=== PATIENT | female | born 1955 | race Caucasian/White ===

== ENCOUNTER → 2022-02-04 15:21 | Outpatient (CLI) | payer BC, SELFPAY ==
[2022-02-04 17:27] LABS: Influenza A - CEPHEID Flu A NEGATIVE (NEGATIVE); Influenza B - CEPHEID Flu B NEGATIVE (NEGATIVE)
[2022-02-04 17:29] LABS: COVID-19 CEPHEID PCR (VTM/NP) Negative (Negative)
== END ==
PROVIDERS: Visit Provider Physician Assistant
DX: Z20.822 Contact with and (suspected) exposure to COVID-19 (principal); R05.9 Cough, unspecified
CPT/HCPCS: 0240U

== ENCOUNTER 2023-05-19 13:54 | Emergency (ER) | payer BC, SELFPAY ==
[2023-05-19 13:58] VITALS: BP 176/89; PULSE 77; RESP 16; TEMP 36.8; O2SAT 99; BMI 29.8
--- NOTE | 2023-05-19 14:32 | DI.CT.S_ITS ---
PROCEDURE: CT HEAD/BRAIN WO CON INDICATIONS: Right eye visual disturbance TECHNIQUE: Noncontrast 4.5 mm thick angled axial sections acquired from the foramen magnum to the vertex, with coronal and sagittal reformats. For radiation dose reduction, the following was used: automated exposure control, adjustment of mA and/or kV according to patient size. COMPARISON: None. FINDINGS: Image quality: Excellent. CSF spaces: Basal cisterns are patent. No extra-axial fluid collections. The ventricles are symmetric in size and shape. Brain: No intracranial bleeds or masses. There is cerebral volume loss for age, with resultant ventricular and sulcal prominence. There is intracranial internal carotid artery atherosclerosis. Skull and face: Calvarium and visualized facial bones appear intact, without suspicious lesions. Sinuses: Visualized sinuses and mastoids are clear. IMPRESSION: No acute intracranial abnormalities. Dictated by: Angel Jordan M.D. on 05/19/2023 at 14:56 Approved by: Angel Jordan M.D. on 05/19/2023 at 14:57
--- NOTE | 2023-05-19 14:33 | ED.NEUROSD ---
HPI - Neuro Symptoms/Deficit General Chief Complaint: Neuro Symptoms/Deficit Stated Complaint: dr ref/visual disturbance Time Seen by Provider: 05/19/23 14:13 Source: patient Mode of arrival: Ambulatory History of Present Illness HPI Narrative: Patient is a 67-year-old female who is here for evaluation of an episode that occurred earlier today. She states that she was sitting at her computer when she noticed a visual disturbance in her right lower visual francois. She stated that this was a well-defined visual disturbance. She stated that she left the computer went into the other room and turned on the TV and noticed that it was still there. She closed her eyes and noticed it was still there. Lasted approximately 15-20 minutes. She stated that it then transient her visual field from left to right and now does not have any symptoms. She does have history of migraines. She states that this is not what her normal auras are for migraines. She did have a headache this morning but it was her normal headache. She currently is asymptomatic. On Anticoagulants: No Related Data Home Medications Medication Instructions Recorded Confirmed aspirin 325 mg tablet,delayed 325 mg PO QDAY ##0 11/28/16 release zbwgalr-soavxmhrdhcpq-tzhqrvov 250 1 tab PO PRN PRN ##0 11/28/16 mg-250 mg-65 mg tablet (Excedrin Extra Strength) ibuprofen 400 mg tablet 400 mg PO PRN PRN ##0 11/28/16 sumatriptan succinate 50 mg tablet ##0 11/28/16 (Imitrex) Previous Rx's Medication Instructions Recorded albuterol sulfate 90 mcg/actuation 2 puff inhalation Q4-6H PRN 02/04/22 aerosol inhaler bronchospasm #8.5 grams azithromycin 250 mg tablet See Rx Instructions PO .COMPLEX #6 02/04/22 tabs Allergies Allergy/AdvReac Type Severity Reaction Status Date / Time No Known Drug Allergies Allergy Verified 05/19/23 14:07 Review of Systems Constitutional Constitutional: Reports system reviewed and no additional complaints, except as documented Eyes Eyes: Reports system reviewed and no additional complaints, except as documented ENT Ears, Nose, Mouth, and Throat: Reports system reviewed and no additional complaints, except as documented Cardiovascular Cardiovascular: Reports system reviewed and no additional complaints, except as documented Neurologic Neurologic: Reports system reviewed and no additional complaints, except as documented Hematologic/Lymphatic On Anticoagulants: No Patient History Surgical History (Updated 01/18/18 @ 06:12 by Conversion Provider) Status post hernia repair Status post hysterectomy Social History Smoking Status: Never smoker Smoking Status: Never smoker Substance Use Type: does not use Exam Initial Vital Signs Initial Vital Signs: Vital Signs Temperature 98.3 F 05/19/23 13:58 Pulse Rate 77 05/19/23 13:58 Respiratory Rate 16 05/19/23 13:58 Blood Pressure 176/89 H 05/19/23 13:58 Pulse Oximetry 99 05/19/23 13:58 Oxygen Delivery Method Room Air 05/19/23 13:58 Const General: cooperative, comfortable and No ill appearing HENMT Head: normal to inspection and normocephalic Face and sinus: normal facial exam Eyes Alignment and Position: alignment normal Periorbital: periorbital findings normal Eyelids: eyelids normal Other: No visual field disturbances. Peripheral vision unremarkable Neuro General: patient alert, patient awake, patient oriented x3 and moves all extremities Cognition: normal cognition Speech: speech normal Gait: normal gait Extrem Other: No gross deformities Course Orders Ordered: ED Orders 05/19/23 14:32 CT head/brain wo con Stat Vital Signs Vital signs: Vital Signs - 8 hr 05/19/23 13:58 Temperature 98.3 F Pulse Rate 77 Respiratory Rate 16 Blood Pressure 176/89 H Pulse Oximetry 99 Oxygen Delivery Method Room Air MDM - Neuro Symptoms/Deficit Imaging Data CT scan - head: Radiologist's Impression: No acute intracranial abnormalities MDM Narrative Medical decision making narrative: Patient is currently asymptomatic. Her head CT is unremarkable. She has a normal ocular exam here in the ER. 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 Patient seems to think that it was not her eyes that was causing these symptoms. I have low suspicion for CVA/TIA or cardiac abnormality. Recently had labs performed that were unremarkable. I do suspect that this was ocular in origin however since her symptoms have completely resolved she can follow-up with ophthalmology as an outpatient. Discharge Plan Departure Patient Disposition: Home Clinical Impression: Visual disturbance Instructions: DI for Visual Field Disturbances Activity Restrictions/Additional Instructions: I do recommend that you continue to take all of your medications as directed. I also recommend that you contact your dry transfer worker for a follow-up for a more defined in depth I exam. Return to the emergency department for new symptoms. Prescriptions: No Action azithromycin 250 mg tablet See Rx Instructions PO .COMPLEX Qty: 6 0RF Rx Instructions: take 500 mg today (day 1), then 250 mg for 4 days (days 2-5) PO albuterol sulfate 90 mcg/actuation HFA aerosol inhaler 2 puff inhalation Q4-6H PRN (Reason: bronchospasm) Qty: 8.5 0RF sumatriptan succinate [Imitrex] 50 MG tablet Qty: 0 supyiqu-fhyilllbyyyfy-umvdyvog [Excedrin Extra Strength] 1 EACH tablet 1 tab PO PRN PRNQty: 0 aspirin 325 MG tablet,delayed release (DR/EC) 325 mg PO QDAY Qty: 0 ibuprofen 400 MG tablet 400 mg PO PRN PRNQty: 0 Referrals: Miscellaneous,Doctor, MD [Primary Care Provider] - Stand Alone Forms: Patient Portal/API
[2023-05-19 16:26] VITALS: BP 162/75; PULSE 69; RESP 16; O2SAT 99
== END 2023-05-19 16:27 | disposition home or self-care (01) ==
PROVIDERS: Emergency Provider Emergency Medicine
DX: H53.9 Unspecified visual disturbance (principal)
CPT/HCPCS: 70450; 99281; 99284

== ENCOUNTER → 2023-07-27 09:42 | Outpatient (CLI) | payer BC, SELFPAY ==
--- NOTE | 2023-07-27 | DI.RAD.S_ITS ---
Bone Density Report Name: MASOUD THOMPSON Age: 68 Sex: Female Ethnicity: White Date of : 1955 Indication: postmenopausal; screening for osteoporosis; Referring Provider: JEAN PIERRE PEREZ Study: Bone densitometry was performed. Exam Date: July 27, 2023 Accession number: [id number] Bone Density: Region BMD T-score Z-score Classification AP Spine(L1-L4) 1.080 0.3 2.2 Normal Femoral Neck (Left) 0.713 -1.2 0.4 Osteopenia Total Hip (Left) 0.932 -0.1 1.3 Normal Femoral Neck (Right) 0.694 -1.4 0.2 Osteopenia Total Hip (Right) 0.982 0.3 1.7 Normal Total Hip Mean 0.957 0.1 1.5 Normal World Health Organization criteria for BMD impression classify patients as: Normal (T-score at or above -1.0), Osteopenia (T-score between -1.0 and -2.5), or Osteoporosis (T-score at or below -2.5). 10-year Fracture Risk(1): Major Osteoporotic Fracture 9.0% Hip Fracture 1.0% Reported Risk Factors: [place] (), Neck BMD=0.694, BMI=28.8 (1) FRAX(R) Version 3.08. Fracture probability calculated for an untreated patient. Fracture probability may be lower if the patient has received treatment. Impression: The patient has low bone mass, based on the Right Femoral Neck T-score. The patient has an estimated ten-year risk of hip fracture of 1% and an estimated ten-year risk of major fracture of 9%, based on the WHO FRAX algorithm. Discussion: BONE DENSITY IS LOW AT ONE OR MORE SKELETAL SITES. This patient's lowest T-score is low at one or more skeletal sites. It meets the World Health Organization's (WHO) criteria for low bone mass (T-score between -1.0 and -2.5). The patient's 10-year risk of fracture as calculated by FRAX is less than the threshold where pharmacological therapy is recommended by the National Osteoporosis Foundation (NOF). However, all treatment decisions require clinical judgment and consideration of individual patient factors, including patient preferences, comorbidities, previous drug use, risk factors not captured in the FRAX model (e.g., frailty, falls, vitamin D deficiency, increased bone turnover, interval significant decline in bone density) and possible under or overestimation of fracture risk by FRAX. The patient should follow a healthful lifestyle (good nutrition with adequate calcium and vitamin D, and appropriate weight-bearing exercise). Follow-Up: Consider repeating this study in 2 to 3 years to reassess this patient's status, or sooner if there is some new clinical indication. Reported by: TREVOR BLOOD M.D. on 07/27/2023 10:40:00 AM.
--- NOTE | 2023-07-27 | DI.MG.S_ITS ---
BILATERAL DIGITAL SCREENING MAMMOGRAM 3D/2D WITH CAD: 07/27/2023 CLINICAL: Routine screening. Family history of breast cancer. Comparison is made to exams dated: 10/24/2010 mammogram, 09/19/2010 mammogram, and 01/27/2012 mammogram - outside location. There are scattered areas of fibroglandular density in both breasts (category b / 25%-50% glandular tissue). Current study was also evaluated with a Computer Aided Detection (CAD) system. No significant masses, calcifications, or other findings are seen in either breast. There has been no significant interval change. IMPRESSION: NEGATIVE There is no mammographic evidence of malignancy. A 1 year screening mammogram is recommended. Based on the Tyrer Cuzick model (a risk assessment model) the patient's lifetime risk is 3.1% and her 10 year risk is 1.6%. According to the ACR, ACS, and NCCN guidelines, an annual breast MRI exam along with mammogram is recommended if the patient's lifetime risk is 20% or greater. This exam was interpreted at Station ID: [id number]. NOTE: For mammograms, a report in lay terms will be sent to the patient. Approximately 15% of breast malignancies will not be visualized mammographically. In the management of a palpable breast mass, a negative mammogram must not discourage biopsy of a clinically suspicious lesion. Electronically Signed By: Rk rojo/sravani:07/27/2023 16:51:12 letter sent: Normal Exam ACR BI-RADS Category 1: Negative 3341F
== END ==
PROVIDERS: Referring Provider Registered Nurse; Visit Provider Registered Nurse
DX: Z12.31 Encounter for screening mammogram for malignant neoplasm of breast (principal); Z80.3 Family history of malignant neoplasm of breast; M85.851 Other specified disorders of bone density and structure, right thigh; Z78.0 Asymptomatic menopausal state
CPT/HCPCS: 77063; 77067; 77080

== ENCOUNTER 2023-10-28 13:57 | Day surgery (SDC) | payer BC, SELFPAY ==
--- NOTE | 2023-10-28 | PATH_ITS ---
[facility] Accession Number: [id number] No. of containers..02 Tissue . 01 Material submitted: . PART A: colon - TRANSVERSE COLON POLYP PART B: colon - DESCENDING COLON POLYP . 01 Diagnosis: A. Transverse Colon, Polyp: Serrated lesion, favor sessile serrated adenoma. . B. Descending Colon, Polyp: Hyperplastic polyp. MRV 11/01/2023 1719 Local . 01 Electronically signed: . Marcy Edwards MD, Pathologist NPI- [id number] . 01 Gross description: . Part A: TRANSVERSE COLON POLYP: Received in formalin is 1 fragment(s) of christopher, soft tissue measuring 0.7 x 0.2 x 0.1 cm submitted entirely in 1 cassette(s) Part B: DESCENDING COLON POLYP: Received in formalin is 1 fragment(s) of christopher, soft tissue measuring 0.3 x 0.2 x 0.1 cm submitted entirely in 1 cassette(s) /AAY 10/30/2023 0523 Local . 01 Pathologist provided ICD-10: D12.3 . 01 CPT . 571159, [id number] Specimen Comment: A courtesy copy of this report has been sent to [phone] Performed at: 01 [facility] [address] [place] [address], [place], [place] [id number] MD Curtis Fuller MD Phone: [phone]
[2023-10-28 14:30] VITALS: BP 154/84; PULSE 78; RESP 16; TEMP 36.3; O2SAT 100
[2023-10-28] MEDS: LACTATED RINGERS 1,000 ML 42 ML IV (14:36)
--- NOTE | 2023-10-28 14:50 | P.HP_ITS ---
History of Present Illness History of Present Illness Date Patient Seen: 10/28/23 Time Patient Seen: 14:50 Chief complaint: Colonoscopy Narrative: Aleah Romero is a 68-year-old woman who is here for colonoscopy. Her last was about 6 years ago and she has had polyps removed. 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 She thinks sometimes her bowel goes into the hernia. [facility] Surgical History (Updated 01/18/18 @ 06:12 by Conversion Provider) Status post hernia repair Status post hysterectomy Social History Smoking Status: Never smoker alcohol intake: current Meds Home Medications and Allergies Home Medications Medication Instructions Recorded Confirmed Type vqcvzcb-wtczyztdwbefe-cmfjcxez 250 1 tab PO PRN PRN ##0 11/28/16 History mg-250 mg-65 mg tablet (Excedrin Extra Strength) ibuprofen 400 mg tablet 400 mg PO PRN PRN ##0 11/28/16 History sumatriptan succinate 50 mg tablet ##0 11/28/16 History (Imitrex) sodium,potassium,mag sulfates 17.5 See Rx Instructions PO .COMPLEX 08/26/23 Rx gram-3.13 gram-1.6 gram oral soln #354 mL (Suprep Bowel Prep Kit) Allergies Allergy/AdvReac Type Severity Reaction Status Date / Time No Known Drug Allergies Allergy Verified 10/28/23 14:19 Exam Vital Signs (past 8 hours): - 10/28/23 14:30 Temperature 97.4 F L Pulse Rate 78 Respiratory Rate 16 Blood Pressure 154/84 H Pulse Oximetry 100 Oxygen Delivery Method Room Air Oxygen Delivery Method Room Air Const General: healthy appearing Resp Effort & Inspection: normal respiratory effort Assessment & Plan Assessment and plan (1) History of colon polyps: Status: Acute Plan We discussed the risks and benefits of colonoscopy for colon cancer screening and history of colon polyps and she would like to proceed.
--- NOTE | 2023-10-28 15:16 | PM.OP.COLON ---
Operative Date/Time/Diagnoses Date of procedure: 10/28/23 Time of procedure: 15:16 Pre-op diagnosis: History of polyps Post-op diagnosis: same Procedure & Clinicians Study performed: Colonoscopy Same procedure as scheduled: Yes Surgeon: Lorenzo Nunn Procedure Notes Procedure in detail: Surgeon: Lorenzo Nunn MD Anesthesia: Den Maldonado MD Procedure: The patient was brought to the endoscopy suite, placed in left lateral decubitus position. The patient was connected to monitoring devices. A time-out was performed. Sedation was administered. Once the patient was adequately sedated, a digital rectal exam was performed and was normal. The scope was then inserted and advanced to the cecum where the appendiceal orifice was identified and photographed. The scope was then slowly withdrawn over greater than 6 minutes. The mucosa was thoroughly inspected. There was a 6 mm polyp in the distal transverse colon removed with a cold snare. There was a 5 mm polyp in the descending colon removed with a cold snare. The scope was retroflexed in the rectum. Internal hemorrhoids were noted. The scope was straightened and removed. The patient was awakened and brought to recovery. Scope withdrawal time: 12 minutes Sedation time: 18 minutes EBL: 3 mL Findings: Small polyps in the transverse and descending colon and internal hemorrhoids Post-procedure Disposition: PACU
[2023-10-28 15:21] VITALS: BP 114/54; PULSE 70; RESP 14; TEMP 36.3; O2SAT 94
[2023-10-28 15:26] VITALS: BP 118/70; PULSE 92; RESP 15; O2SAT 98
--- NOTE | 2023-10-28 15:26 | PM.OP.COLON ---
Operative Date/Time/Diagnoses Date of procedure: 10/28/23 Time of procedure: 15:26 Pre-op diagnosis: Colon cancer screening and history of polyps Post-op diagnosis: same Procedure & Clinicians Study performed: Colonoscopy
[2023-10-28 15:31] VITALS: BP 132/76; PULSE 60; RESP 14; O2SAT 99
== END 2023-10-28 15:51 | disposition home or self-care (01) ==
PROVIDERS: PCP Registered Nurse; Referring Provider Surgery; Visit Provider Surgery
PROC: 0DJD8ZZ Inspection of Lower Intestinal Tract, Via Natural or Artificial Opening Endoscopic (ICD-10-PCS; CPT 45378; principal; 2023-10-28 15:00)
DX: Z12.11 Encounter for screening for malignant neoplasm of colon (principal); Z86.010 Personal history of colon polyps; K64.8 Other hemorrhoids; D12.3 Benign neoplasm of transverse colon; K63.5 Polyp of colon
CPT/HCPCS: 45385; J2704

== ENCOUNTER → 2024-09-08 12:08 | Outpatient (CLI) | payer BC, SELFPAY ==
--- NOTE | 2024-09-08 12:10 | DI.RAD.S_ITS ---
PROCEDURE: XR HIP W PEL IF DONE RT 2V INDICATIONS: HIP PAIN TECHNIQUE: 2 views of the hip were acquired. COMPARISON: None. FINDINGS: Bones: Mild bilateral hip arthrosis. No acute displaced fracture or dislocation. Moderate right and mild left calcific tendinopathy. Soft tissues: Colonic markers seen projecting over the pelvis and left lower quadrant. IMPRESSION: Mild bilateral hip arthrosis. Moderate right and mild left abductor calcific tendinopathy. If there is high concern for further derangement, consider MRI evaluation. Dictated by: Saeid King M.D. on 09/09/2024 at 20:17 Approved by: Saeid King M.D. on 09/09/2024 at 20:18
== END ==
LOC: RAD 12:09
PROVIDERS: PCP Registered Nurse; Referring Provider Registered Nurse; Visit Provider Registered Nurse
DX: M16.0 Bilateral primary osteoarthritis of hip (principal); M65.852 Other synovitis and tenosynovitis, left thigh; M65.851 Other synovitis and tenosynovitis, right thigh; M25.551 Pain in right hip
CPT/HCPCS: 73502